=== PATIENT | female | born 1990 | race Caucasian/White ===

== ENCOUNTER 2016-07-17 22:58 | Inpatient (IN) ==
[2016-07-17 23:25] LABS: URINE SOURCE VOIDED
[2016-07-17 23:34] LABS: BILIRUBIN URINE NEGATIVE (NEGATIVE); BLOOD URINE 2+ (NEGATIVE); CLARITY CLEAR (CLEAR); COLOR YELLOW; GLUCOSE URINE NEGATIVE (NEGATIVE); LEUKOCYTES URINE 1+ (NEGATIVE); NITRITE URINE NEGATIVE (NEGATIVE); PH URINE 6.5; PROTEIN URINE NEGATIVE (NEGATIVE); SP GRAVITY URINE 1.015; UROBILINOGEN URINE NORMAL
[2016-07-18] MEDS ORDERED: STADOL IV PRN (00:04)
[2016-07-18] MEDS ORDERED: ZOFRAN IV PRN (00:04)
[2016-07-18] MEDS ORDERED: TYLENOL PO PRN (00:04)
[2016-07-18] MEDS ORDERED: PEPCID IV PRN (00:04)
[2016-07-18] MEDS ORDERED: PEPCID PO PRN (00:04)
[2016-07-18] MEDS ORDERED: KEFZOL 1 GM/D5W 50 ML IV PRN (00:04)
[2016-07-18] MEDS ORDERED: SODIUM CHLORIDE 0.9% INJ SCH (00:15)
[2016-07-18] MEDS: LR 1,000 ML IV SCH ×2 (00:29→02:14)
[2016-07-18 00:43] LABS: MANUAL DIFF NEEDED? NO
[2016-07-18 01:06] LABS: BASO% 0.5 % (0.0-0.8); EOS# 0.06 X1000 (0.0-0.7); EOS% 0.5 % (0.0-10.0); HEMATOCRIT 34.2 % (37.0-47.0); HEMOGLOBIN 10.6 g/dL (12.0-16.0); IMM GRAN# 0.08 X1000 (0.0-0.04); IMM GRAN% 0.6 % (0.0-0.5); MCH 25.5 PG (27-31); MCV 82.4 FL (81-99); MONO# 1.16 X1000 (0.11-0.59); MONO% 8.8 % (1.7-9.3); MPV 11.8 FL (7.4-10.4); NEUT% 70.6 % (42.2-75.2); PLT 161 X1000 (130-400); RBC 4.15 XMIL (4.2-5.4)
[2016-07-18] MEDS ORDERED: FENTANYL-BUPIV-NS 2 MCG-0.1% 200 ML EPIDURAL PRN (01:48)
[2016-07-18] MEDS ORDERED: XYLOCAINE-MPF 1% 0 ML ONE (02:05)
[2016-07-18] MEDS ORDERED: MINERAL OIL ONE (06:57)
[2016-07-18] MEDS ORDERED: PITOCIN 30 UNITS/LR 500 ML IV SCH (07:00)
[2016-07-18] MEDS ORDERED: NORCO-5 PO PRN (08:32)
[2016-07-18] MEDS ORDERED: XYLOCAINE-MPF 1% INJ PRN (08:32)
[2016-07-18] MEDS ORDERED: AMBIEN PO PRN (08:32)
[2016-07-18] MEDS ORDERED: CYTOTEC PO PRN (08:32)
[2016-07-18] MEDS ORDERED: PERCOCET-5 PO PRN (08:32)
[2016-07-18] MEDS ORDERED: PITOCIN IM PRN (08:32)
[2016-07-18] MEDS ORDERED: HYDROXYZINE IM PRN (08:32)
[2016-07-18] MEDS ORDERED: BENADRYL IV PRN (08:32)
[2016-07-18] MEDS ORDERED: PERI MEDS (DERMOPLAST/NUPERCAINAL/TUCKS) MISC PRN (08:32)
[2016-07-18] MEDS ORDERED: BENADRYL PO PRN (08:32)
[2016-07-18] MEDS ORDERED: PERCOCET-10 PO PRN (08:32)
[2016-07-18] MEDS ORDERED: M-M-R II VACCINE SUBQ ONE (08:32)
[2016-07-18] MEDS ORDERED: HYDROXYZINE PO PRN (08:32)
[2016-07-18] MEDS ORDERED: NORCO-10 PO PRN (08:32)
[2016-07-18] MEDS ORDERED: MINERAL OIL MISC PRN (08:32)
[2016-07-18] MEDS ORDERED: PITOCIN 30 UNITS/LR 500 ML IV ONE (08:32)
[2016-07-18] MEDS ORDERED: BOOSTRIX VACCINE IM ONE (08:32)
[2016-07-18] MEDS ORDERED: PITOCIN 20 UNITS/LR 1,000 ML IV SCH (08:45)
--- NOTE | 2016-07-18 12:21 | OPERATIVE NOTE ---
PROCEDURE DATE: 07/18/2016 DELIVERY NOTE DELIVERING PHYSICIAN: Hai Chiang MD TYPE OF DELIVERY: Spontaneous controlled vaginal delivery. ANESTHESIA: Epidural. FINDINGS: At 0808, a 7 pound 15 ounce female was delivered in occipitoanterior presentation. scores were 9 at one minute and 10 at five minutes. DELIVERY SUMMARY: Mrs. Grier is a 26-year-old, 2, para 1-0-0-1, at 39-1/2 weeks gestation. Her blood type is A positive, rubella immune. Hepatitis B surface antigen, HIV, and group B strep were negative. She presented to Labor and delivery late last night in labor she progressed through labor without signs of distress or dystocia. She received an epidural for labor pain management. She had artificial rupture of membranes which revealed clear fluid. She became complete and began pushing. She very quickly crowned. At that point, she was placed in the dorsal lithotomy position and spontaneous controlled vaginal delivery occurred. Once the 's head was delivered, the oropharynx was bulb suctioned. The shoulders and body delivered without complications. The cord was clamped and cut. The was handed to the nurses for further care and evaluation. Cord blood was obtained. The placenta was spontaneously delivered and was intact. There were no cervical lacerations. There were some bilateral labial lacerations which were repaired using 3-0 chromic suture. Blood loss was approximately 200 mL. There were no complications. The patient remained in the LDR, recovering without difficulty.
[2016-07-18] MEDS: PERICOLACE PO SCH (20:04)
[2016-07-18] MEDS: MOTRIN PO PRN (22:08)
[2016-07-19 06:26] LABS: HEMATOCRIT 30.7 % (37.0-47.0); HEMOGLOBIN 9.3 g/dL (12.0-16.0); MCH 25.3 PG (27-31); MCHC 30.3 g/dL (33-37); MCV 83.4 FL (81-99); MPV 11.9 FL (7.4-10.4); RBC 3.68 XMIL (4.2-5.4)
[2016-07-19] MEDS ORDERED: PERI MEDS (DERMOPLAST/NUPERCAINAL/TUCKS) ONE (07:59)
[2016-07-19] MEDS: PRECARE PO SCH (09:27)
[2016-07-19] MEDS: MOTRIN PO PRN (09:27)
[2016-07-19] MEDS: PERICOLACE PO SCH (20:51)
[2016-07-20] MEDS: MOTRIN PO PRN (04:00)
[2016-07-20] MEDS: PRECARE PO SCH (08:45)
[2016-07-20 09:22] VITALS: BP 133/75
== END 2016-07-20 12:10 | disposition home or self-care (01) | DRG 775 ==
LOC: P.OPLD 22:58 → P.LD 23:01 → P.OPLD 23:53 → P.WC 07-18 09:39
PROVIDERS: ADMIT Obstetrics & Gynecology; ATTEND Obstetrics & Gynecology
PROC: 10907ZC Drainage of Amniotic Fluid, Therapeutic from Products of Conception, Via Natural or Artificial Opening (ICD-10-PCS; 2016-07-18)
PROC: 0HQ9XZZ Repair Perineum Skin, External Approach (ICD-10-PCS; 2016-07-18)
PROC: 10E0XZZ Delivery of Products of Conception, External Approach (ICD-10-PCS; principal; 2016-07-18 08:45)
DX: O70.0 First degree perineal laceration during delivery (principal); Z37.0 Single live birth; Z3A.39 39 weeks gestation of pregnancy
CPT/HCPCS: 59025; 81003; 85025; 85027; 86592; J0595; J2590; J7120